=== PATIENT | female | born 1985 | race Caucasian/White ===

== ENCOUNTER 2017-12-15 17:03 | Emergency (ER) | payer OTHER ==
[2017-12-15] MEDS: SOD CHLORIDE 0.9% 1,000 ML IV (17:44)
[2017-12-15] MEDS: morphine 4 MG/ML VIAL IV (17:44)
[2017-12-15] MEDS: ONDANSETRON 4 MG INJ IV (17:44)
[2017-12-15 17:46] LABS: ADD MAN DIFF? NO
[2017-12-15 17:49] LABS: WHITE BLOOD COUNT 15.8 10^3/ul (4.8-10.8)
[2017-12-15 17:49] LABS: BASOPHILS % 0.2 % (0.0-2.0); EOSINOPHILS % 0.2 % (0.0-7.0); HEMATOCRIT 39.8 % (37.0-47.0); HEMOGLOBIN 13.3 g/dl (12.0-16.0); LYMPHOCYTES # 1.5 10^3/ul (0.8-2.9); LYMPHOCYTES % 9.6 % (15.0-51.0); MEAN CORPUSCULAR HGB CONC 33.4 g/dl (32.0-37.0); MEAN CORPUSCULAR VOLUME 89.6 fl (82.0-101.0); MONOCYTES % 6.3 % (0.0-11.0); NEUTROPHIL # 13.1 10^3/ul (1.6-7.5); NEUTROPHILS % 83.2 % (39.0-77.0); PLATELET COUNT 220 10^3/UL (140-415); RED BLOOD COUNT 4.44 10^6/ul (4.20-5.40); RED CELL DISTRIBUTION WIDTH 13.1 % (11.5-14.5)
[2017-12-15 17:51] LABS: ADD UMIC YES; UR ASCORBIC ACID NEGATIVE (NEGATIVE); UR BILIRUBIN (Dip) NEGATIVE (NEGATIVE); UR BLOOD (Dip) 2+ mg/dL (NEGATIVE); UR CLARITY CLEAR (CLEAR); UR COLOR YELLOW (YELLOW); UR GLUCOSE (Dip) NEGATIVE (NEGATIVE); UR KETONES (Dip) NEGATIVE (NEGATIVE); UR LEUKOCYTE ESTERASE (Dip) NEGATIVE Leu/ul (NEGATIVE); UR NITRITE (Dip) NEGATIVE (NEGATIVE); UR RBC 0 /HPF (0-5); UR SPECIFIC GRAVITY (Dip) 1.013 (1.003-1.030); UR TOTAL PROTEIN (Dip) NEGATIVE (NEGATIVE); UR UROBILINOGEN (Dip) NEGATIVE (NEGATIVE); UR WBC 0 /HPF (0-5)
[2017-12-15] MEDS: KETOROLAC 60 MG INJ IM (17:59)
[2017-12-15] MEDS: ACETAMINOPHEN 650MG/20.3ML CUP PO (17:59)
[2017-12-15 18:07] LABS: ALANINE AMINOTRANSFERASE 22 IU/L (13-69); ALBUMIN 4.4 g/dl (3.3-4.9); ALBUMIN/GLOBULIN RATIO 1.41; ALKALINE PHOSPHATASE 51 IU/L (42-121); ANION GAP 16 (8-16); ASPARTATE AMINO TRANSFERASE 20 IU/L (15-46); BILIRUBIN,INDIRECT 0.4 mg/dl (0-1.1); BILIRUBIN,TOTAL 0.4 mg/dl (0.2-1.3); BLOOD UREA NITROGEN 9 mg/dl (7-20); CALCIUM 9.6 mg/dl (8.4-10.2); CARBON DIOXIDE 27 mmol/L (21-31); CHLORIDE 103 mmol/L (97-110); CREATININE 0.77 mg/dl (0.44-1.00); GLUCOSE 80 mg/dl (70-220); LIPASE 84 U/L (23-300); POTASSIUM 4.1 mmol/L (3.5-5.1); SODIUM 142 mmol/L (135-144); TOTAL PROTEIN 7.5 g/dl (6.1-8.1)
[2017-12-15] MEDS: IOHEXOL 300MG/ML 150 ML BTL (18:39)
[2017-12-15] MEDS: SOD CHLORIDE 0.9% 100 ML (18:39)
[2017-12-15] MEDS: CLINDAMYCIN 600 MG/D5W (PMX) 50 ML IVPB (18:46)
[2017-12-15] MEDS: DEXAMETHASONE 10 MG/ML 1 ML INJ IV (19:34)
[2017-12-15] MEDS: PENICILLIN G BENZ 1.2 MIL UNIT SYG IM (20:17)
[2017-12-15] MEDS: morphine 2 MG INJ IV (20:23)
== END 2017-12-15 20:40 | disposition home or self-care (01) ==
LOC: FTE 17:03
DX: J02.0 Streptococcal pharyngitis (principal)
CPT/HCPCS: 36415; 70491; 80053; 81001; 81025; 83605; 83690; 84703; 85025; 87880; 96361; 96365; 96372; 96375; 96376; 99285-25

== ENCOUNTER 2018-11-09 10:34 | Emergency (ER) | payer OTHER ==
[2018-11-09] MEDS: HYDROCODONE/APAP (5/325) TAB PO (12:44)
[2018-11-09] MEDS: CEFTRIAXONE 1 GM INJ IM (12:44)
[2018-11-09] MEDS: AMOXICILLIN/CLAV 875 MG TAB PO (12:48)
[2018-11-09] MEDS: LIDOCAINE 1% (MPF) 5 ML VIAL INJ (12:49)
[2018-11-09] MEDS: ONDANSETRON (ODT) 4 MG TAB ODT (12:49)
== END 2018-11-09 13:20 | disposition home or self-care (01) ==
LOC: FTE 10:34
DX: H92.02 Otalgia, left ear (principal)
CPT/HCPCS: 96372; 99284-25